=== PATIENT | male | born 1945 | race Two or more races ===

== ENCOUNTER 2016-02-25 08:54 | Inpatient (IN) | payer MEDICARE ==
[~2016-02-25] VITALS: Ht 170.2 cm; Wt 90.2 kg
[2016-02-25 09:38] LABS: Basophils # (auto) 0 uL; Basophils % (auto) 0.9 % (0.0-2.0); DEFINITIVE VIEW TRANSMISSION; Eosinophils # (auto) 0 uL; Eosinophils % (auto) 0.8 % (0.0-7.0); Hematocrit 40.1 % (41.0-53.0); Hemoglobin 12.9 g/dL (13.5-17.5); Lymphocytes # (auto) 0.7 uL; Lymphocytes % (auto) 14.3 % (10.0-50.0); Mean Corpuscular Hemoglobin 33.1 pg (28.0-32.0); Mean Corpuscular Hgb Conc. 32.3 g/dL (32.0-36.0); Mean Corpuscular Volume 102.5 fL (80.0-100.0); Mean Platelet Volume 8.6 fL (7.4-10.4); Monocytes # (auto) 0.4 uL; Monocytes % (auto) 7.5 % (0.0-12.0); Neutrophils # (auto) 3.6 uL; Neutrophils % (auto) 76.5 % (37.0-80.0); Platelet Count (auto) 134 10^3/uL (140-450); Red Cell Distribution Width 18.1 % (11.6-16.0); White Blood Cell 4.8 10^3/uL (4.4-10.8)
[2016-02-25 10:06] LABS: Albumin 3.2 g/dL (3.4-5.0); Bilirubin, Total 1.5 mg/dL (0.2-1.0); Potassium 3.9 mmol/L (3.5-5.1); Total Protein 7.5 g/dL (6.4-8.2)
[2016-02-25] MEDS ORDERED: ASPirin 81 mg TAB PO ONE (10:30)
[2016-02-25] MEDS ORDERED: AMIODARONE HCL 900 MG in DEXTROSE 500 ML IV SCH (11:27)
[2016-02-25] MEDS ORDERED: AMIODARONE HCL 150 MG in D5W 5% 100 ML IV ONE (11:45)
[2016-02-25] MEDS ORDERED: LIDOCAINE HCL 100 MG/5ML (2%) SYRG INJ IV ONE ×2 (12:28→12:30)
[2016-02-25] MEDS ORDERED: LIDOCAINE 4MG/ML IV SOLN 500 ML IV ONE (12:28)
[2016-02-25] MEDS ORDERED: LIDOCAINE 4MG/ML IV SOLN 500 ML IV SCH (12:30)
[2016-02-25] MEDS ORDERED: MORPHINE SULF INJ 2 MG/ML SYRINGE 1ML IV PRN ×2 (13:30)
[2016-02-25] MEDS ORDERED: DEXTROSE (50%) 50ML SYRG IV PRN (13:30)
[2016-02-25] MEDS ORDERED: DOCUSATE SOD 100 MG CAP PO PRN (13:30)
[2016-02-25] MEDS ORDERED: NITROGLYCERIN 0.4 MG SL TAB SL PRN (13:30)
[2016-02-25] MEDS ORDERED: ACETAMINOPHEN 325 MG TAB PO PRN (13:30)
[2016-02-25] MEDS ORDERED: TEMAZEPAM 15 MG CAP PO PRN (13:30)
[2016-02-25] MEDS: LIDOCAINE 4MG/ML IV SOLN 500 ML IV SCH (13:45)
[2016-02-25] MEDS: SODIUM CHLOR 0.9% PF (SALINE LOCK) 10ML VIAL IV SCH ×2 (14:39→22:00)
[2016-02-25] MEDS ORDERED: CLOPIDOGREL BISULFATE 75 MG TAB PO ONE (15:00)
[2016-02-25] MEDS ORDERED: MULTIPLE VITAMIN TAB PO ONE (15:00)
[2016-02-25] MEDS ORDERED: B-COMPLEX W/ C & FOLIC ACID(NEPHROVITE TAB) PO ONE (15:00)
[2016-02-25] MEDS: ACCU-CHEK COMFORT CURVE STRIP VI SCH ×2 (16:52→22:00)
[2016-02-25] MEDS: InsuLIN REG 1unit/0.01ml Soln (100units/ml) SC SCH ×2 (16:52→22:00)
[2016-02-25] MEDS: HYDROcodone-ACET 5/325MG TAB PO PRN (17:21)
[2016-02-25] MEDS: Boost Glucose Control 8 Ounces PO SCH (18:55)
[2016-02-25] MEDS: LOSARTAN POTASSIUM 25 MG TAB PO SCH (19:00)
[2016-02-25] MEDS: CALCIUM ACETATE 667 MG CAP PO SCH (19:01)
[2016-02-25] MEDS ORDERED: HYDROmorphone HCL 2 MG/ML VL IV PRN (19:30)
[2016-02-25] MEDS ORDERED: ONDANSETRON HCL 4 MG/2 ML VIAL ONE (21:28)
[2016-02-25] MEDS: CARVEDILOL 3.125 MG TAB PO SCH (21:43)
[2016-02-25] MEDS: AMIODARONE HCL 200 MG TAB PO SCH (21:43)
[2016-02-25] MEDS: FAMOTIDINE 20 MG TAB PO SCH (21:47)
[2016-02-25] MEDS: ATORVASTATIN 20 MG TAB PO SCH (21:47)
[2016-02-25] MEDS ORDERED: NOREPINEPHRINE BITARTRATE 250 ML IV ONE (21:49)
[2016-02-25] MEDS: FISH OIL 1000MG PO SCH (22:00)
[2016-02-25] MEDS: NOREPINEPHRINE BITARTRATE 250 ML IV SCH (22:00)
[2016-02-25] MEDS: HYDROmorphone HCL 2 MG/ML VL IV PRN (22:20)
[2016-02-26] MEDS: HYDROmorphone HCL 2 MG/ML VL IV PRN ×2 (02:47→05:56)
[2016-02-26 04:17] LABS: Basophils # (auto) 0 uL; DEFINITIVE VIEW TRANSMISSION; Eosinophils # (auto) 0 uL; Hematocrit 39.1 % (41.0-53.0); Hemoglobin 12.2 g/dL (13.5-17.5); Lymphocytes # (auto) 0.6 uL; Lymphocytes % (auto) 7.4 % (10.0-50.0); Mean Corpuscular Hemoglobin 32.9 pg (28.0-32.0); Mean Corpuscular Hgb Conc. 31.3 g/dL (32.0-36.0); Mean Corpuscular Volume 104.9 fL (80.0-100.0); Mean Platelet Volume 9.5 fL (7.4-10.4); Monocytes # (auto) 0.9 uL; Neutrophils # (auto) 6.3 uL; Neutrophils % (auto) 81.6 % (37.0-80.0); Platelet Count (auto) 115 10^3/uL (140-450); Red Cell Distribution Width 18.6 % (11.6-16.0); White Blood Cell 7.8 10^3/uL (4.4-10.8)
[2016-02-26] MEDS: ACCU-CHEK COMFORT CURVE STRIP VI SCH ×4 (06:20→22:24)
[2016-02-26] MEDS: SODIUM CHLOR 0.9% PF (SALINE LOCK) 10ML VIAL IV SCH ×3 (06:20→22:24)
[2016-02-26] MEDS: InsuLIN REG 1unit/0.01ml Soln (100units/ml) SC SCH ×3 (06:21→22:00)
[2016-02-26] MEDS: CALCIUM ACETATE 667 MG CAP PO SCH ×3 (08:00→18:00)
[2016-02-26] MEDS: Boost Glucose Control 8 Ounces PO SCH ×3 (08:00→18:00)
[2016-02-26] MEDS: LOSARTAN POTASSIUM 25 MG TAB PO SCH ×3 (08:00→18:00)
[2016-02-26] MEDS ORDERED: NOREPINEPHRINE BITARTRATE 250 ML IV ONE (08:17)
[2016-02-26 08:22] LABS: INR 1.34 (0.9-1.15); Prothrombin Time 13.8 sec (9.37-12.3)
[2016-02-26] MEDS: FISH OIL 1000MG PO SCH ×2 (09:34→22:00)
[2016-02-26] MEDS: ASPirin-EC 81 mg tab PO SCH (09:34)
[2016-02-26] MEDS: AMIODARONE HCL 200 MG TAB PO SCH ×2 (09:34→22:43)
[2016-02-26] MEDS: MULTIPLE VITAMIN TAB PO SCH (09:34)
[2016-02-26] MEDS: CARVEDILOL 3.125 MG TAB PO SCH ×2 (09:34→22:44)
[2016-02-26] MEDS: B-COMPLEX W/ C & FOLIC ACID(NEPHROVITE TAB) PO SCH (09:35)
[2016-02-26] MEDS: ONDANSETRON HCL 4 MG/2 ML VIAL IV PRN ×3 (09:40→20:30)
[2016-02-26 09:48] LABS: Albumin 3.1 g/dL (3.4-5.0); BUN/Creatinine Ratio 5.8; Bilirubin, Total 1.3 mg/dL (0.2-1.0); Potassium 4.9 mmol/L (3.5-5.1); Total Protein 7.1 g/dL (6.4-8.2)
[2016-02-26] MEDS ORDERED: SODIUM CHLORIDE 0.9% 500 ML IV ONE (11:45)
[2016-02-26] MEDS: CLOPIDOGREL BISULFATE 75 MG TAB PO SCH (11:47)
[2016-02-26] MEDS: FAMOTIDINE 20 MG TAB PO SCH ×2 (11:47→22:45)
[2016-02-26] MEDS ORDERED: POTASSIUM CHL 20 Meq TABLET PO ONE (13:30)
[2016-02-26] MEDS: LIDOCAINE 4MG/ML IV SOLN 500 ML IV SCH (14:10)
[2016-02-26] MEDS ORDERED: SODIUM CHL 0.9% 1000 ML BAG XX ONE (14:45)
[2016-02-26] MEDS: NOREPINEPHRINE BITARTRATE 250 ML IV SCH (22:00)
[2016-02-26] MEDS: ATORVASTATIN 20 MG TAB PO SCH (22:45)
[2016-02-26] MEDS: MEXILETINE HYDROCHLORIDE 150 MG CAP PO SCH (22:45)
[2016-02-27] VITALS (79 sets, daily range): BP systolic 76–152; BP diastolic 49–94
[2016-02-27] MEDS: SODIUM CHLOR 0.9% PF (SALINE LOCK) 10ML VIAL IV SCH ×3 (05:54→21:03)
[2016-02-27] MEDS: ACCU-CHEK COMFORT CURVE STRIP VI SCH ×4 (05:55→21:31)
[2016-02-27] MEDS: InsuLIN REG 1unit/0.01ml Soln (100units/ml) SC SCH ×4 (06:00→21:41)
[2016-02-27] MEDS: ONDANSETRON HCL 4 MG/2 ML VIAL IV PRN ×3 (06:08→17:44)
[2016-02-27] MEDS ORDERED: LORazepam 2MG/ML-1ML VIAL IM ONE (06:45)
[2016-02-27] MEDS: Boost Glucose Control 8 Ounces PO SCH ×3 (08:00→17:48)
[2016-02-27] MEDS: LOSARTAN POTASSIUM 25 MG TAB PO SCH ×3 (08:00→17:48)
[2016-02-27] MEDS: CALCIUM ACETATE 667 MG CAP PO SCH ×3 (08:00→17:37)
[2016-02-27] MEDS ORDERED: ALBUMIN 25% 100 ML IV ONE (08:00)
[2016-02-27] MEDS: FISH OIL 1000MG PO SCH ×2 (10:00→20:09)
[2016-02-27] MEDS: CARVEDILOL 3.125 MG TAB PO SCH ×3 (10:00→21:09)
[2016-02-27] MEDS: B-COMPLEX W/ C & FOLIC ACID(NEPHROVITE TAB) PO SCH (12:30)
[2016-02-27] MEDS: MULTIPLE VITAMIN TAB PO SCH (12:30)
[2016-02-27] MEDS: ASPirin-EC 81 mg tab PO SCH (12:31)
[2016-02-27] MEDS: AMIODARONE HCL 200 MG TAB PO SCH ×2 (12:31→21:01)
[2016-02-27] MEDS: FAMOTIDINE 20 MG TAB PO SCH ×2 (12:32→21:01)
[2016-02-27] MEDS: CLOPIDOGREL BISULFATE 75 MG TAB PO SCH (12:32)
[2016-02-27 15:30] LABS: BUN/Creatinine Ratio 5.3; Calcium 8.4 mg/dL (8.5-10.1); Magnesium 2.5 mg/dL (1.6-2.6); Potassium 4.7 mmol/L (3.5-5.1)
[2016-02-27] MEDS: MEXILETINE HYDROCHLORIDE 150 MG CAP PO SCH ×2 (17:38→21:31)
[2016-02-27] MEDS: ATORVASTATIN 20 MG TAB PO SCH (21:01)
[2016-02-27 23:21] LABS: Magnesium 2.4 mg/dL (1.6-2.6)
[2016-02-28] VITALS (95 sets, daily range): BP systolic 72–125; BP diastolic 37–90
[2016-02-28 04:04] LABS: BUN/Creatinine Ratio 6.1; Calcium 8.6 mg/dL (8.5-10.1); Magnesium 2.6 mg/dL (1.6-2.6)
[2016-02-28] MEDS: SODIUM CHLOR 0.9% PF (SALINE LOCK) 10ML VIAL IV SCH ×3 (05:05→21:21)
[2016-02-28] MEDS: InsuLIN REG 1unit/0.01ml Soln (100units/ml) SC SCH ×4 (06:08→21:44)
[2016-02-28] MEDS: ACCU-CHEK COMFORT CURVE STRIP VI SCH ×4 (06:35→21:23)
[2016-02-28] MEDS: LOSARTAN POTASSIUM 25 MG TAB PO SCH (08:00)
[2016-02-28] MEDS: Boost Glucose Control 8 Ounces PO SCH ×3 (08:00→16:43)
[2016-02-28] MEDS: CALCIUM ACETATE 667 MG CAP PO SCH ×3 (08:00→16:42)
[2016-02-28] MEDS: ONDANSETRON HCL 4 MG/2 ML VIAL IV PRN ×3 (08:16→23:29)
[2016-02-28] MEDS ORDERED: SODIUM CHLORIDE 0.9% 150 ML IV ONE (08:30)
[2016-02-28] MEDS: FISH OIL 1000MG PO SCH ×2 (10:00→21:22)
[2016-02-28] MEDS: PANTOPRAZOLE 40 MG TAB PO SCH ×2 (10:37→10:39)
[2016-02-28] MEDS: FAMOTIDINE 20 MG TAB PO SCH ×2 (10:38→21:21)
[2016-02-28] MEDS: ASPirin-EC 81 mg tab PO SCH (10:38)
[2016-02-28] MEDS: LIDOCAINE 4MG/ML IV SOLN 500 ML IV SCH ×2 (10:38→13:45)
[2016-02-28] MEDS: CLOPIDOGREL BISULFATE 75 MG TAB PO SCH (10:38)
[2016-02-28] MEDS: AMIODARONE HCL 200 MG TAB PO SCH ×2 (10:39→21:22)
[2016-02-28] MEDS: MEXILETINE HYDROCHLORIDE 150 MG CAP PO SCH (10:40)
[2016-02-28] MEDS: MULTIPLE VITAMIN TAB PO SCH (10:48)
[2016-02-28] MEDS: B-COMPLEX W/ C & FOLIC ACID(NEPHROVITE TAB) PO SCH (10:48)
[2016-02-28] MEDS ORDERED: NOREPINEPHRINE BITARTRATE 250 ML IV ONE (11:18)
[2016-02-28] MEDS: ALBUMIN 25% 100 ML IV SCH ×2 (11:48→12:00)
[2016-02-28] MEDS: SODIUM CHLORIDE 0.9% 1,000 ML IV SCH (12:01)
[2016-02-28 12:40] LABS: Basophils # (auto) 0 uL; Basophils % (auto) 0.3 % (0.0-2.0); DEFINITIVE VIEW TRANSMISSION; Eosinophils # (auto) 0 uL; Eosinophils % (auto) 0.2 % (0.0-7.0); Hematocrit 39.5 % (41.0-53.0); Hemoglobin 12.8 g/dL (13.5-17.5); Lymphocytes # (auto) 0.9 uL; Lymphocytes % (auto) 11.3 % (10.0-50.0); Mean Corpuscular Hemoglobin 33.5 pg (28.0-32.0); Mean Corpuscular Hgb Conc. 32.4 g/dL (32.0-36.0); Mean Corpuscular Volume 103.4 fL (80.0-100.0); Monocytes # (auto) 0.7 uL; Monocytes % (auto) 9.3 % (0.0-12.0); Neutrophils % (auto) 78.9 % (37.0-80.0); Platelet Count (auto) 88 10^3/uL (140-450); White Blood Cell 7.6 10^3/uL (4.4-10.8)
[2016-02-28] MEDS ORDERED: OMEGCAP2 OR (15:26)
[2016-02-28] MEDS ORDERED: FOLI800T14 PO (15:26)
[2016-02-28] MEDS ORDERED: ATOR40TA52 PO (15:26)
[2016-02-28] MEDS ORDERED: B COCAP3 OR (15:26)
[2016-02-28] MEDS ORDERED: MIDO5TAB16 PO (15:26)
[2016-02-28] MEDS ORDERED: ERGO1CAP23 PO (15:26)
[2016-02-28] MEDS ORDERED: GLIP-115 PO (15:26)
[2016-02-28] MEDS ORDERED: ASPI-231 PO (15:26)
[2016-02-28] MEDS ORDERED: CLOP75TA41 PO (15:26)
[2016-02-28] MEDS ORDERED: CAL667C PO (15:26)
[2016-02-28] MEDS ORDERED: CARV3.1240 PO (15:26)
[2016-02-28] MEDS ORDERED: NITR0.4S29 SL (15:26)
[2016-02-28] MEDS: NOREPINEPHRINE BITARTRATE 250 ML IV SCH (20:30)
[2016-02-28] MEDS: ATORVASTATIN 20 MG TAB PO SCH (21:21)
[2016-02-28] MEDS ORDERED: MEXILETINE HYDROCHLORIDE 150 MG CAP PO SCH (22:00)
[2016-02-29] VITALS (92 sets, daily range): BP systolic 87–138; BP diastolic 36–87
[2016-02-29] MEDS: SODIUM CHLORIDE 0.9% 1,000 ML IV SCH ×2 (03:55→22:29)
[2016-02-29] MEDS: ONDANSETRON HCL 4 MG/2 ML VIAL IV PRN ×2 (04:59→08:19)
[2016-02-29] MEDS: SODIUM CHLOR 0.9% PF (SALINE LOCK) 10ML VIAL IV SCH ×3 (05:23→22:27)
[2016-02-29] MEDS: InsuLIN REG 1unit/0.01ml Soln (100units/ml) SC SCH ×4 (06:03→22:00)
[2016-02-29] MEDS: ACCU-CHEK COMFORT CURVE STRIP VI SCH ×4 (06:06→22:28)
[2016-02-29] MEDS: Boost Glucose Control 8 Ounces PO SCH ×3 (08:00→18:00)
[2016-02-29] MEDS: CALCIUM ACETATE 667 MG CAP PO SCH ×3 (08:00→18:00)
[2016-02-29] MEDS ORDERED: PROMETHAZINE HCL 25 MG/ML 1ML IV PRN (08:15)
[2016-02-29] MEDS ORDERED: PROMETHAZINE HCL 25 MG/ML 1ML ONE (08:17)
[2016-02-29 09:13] LABS: Basophils # (auto) 0 uL; Basophils % (auto) 0.3 % (0.0-2.0); DEFINITIVE VIEW TRANSMISSION; Eosinophils # (auto) 0 uL; Eosinophils % (auto) 0.3 % (0.0-7.0); Hematocrit 43.3 % (41.0-53.0); Hemoglobin 13.9 g/dL (13.5-17.5); Lymphocytes # (auto) 0.9 uL; Lymphocytes % (auto) 10.2 % (10.0-50.0); Mean Corpuscular Hemoglobin 33.2 pg (28.0-32.0); Mean Corpuscular Hgb Conc. 32.1 g/dL (32.0-36.0); Mean Corpuscular Volume 103.5 fL (80.0-100.0); Monocytes # (auto) 0.9 uL; Monocytes % (auto) 10.2 % (0.0-12.0); Neutrophils # (auto) 7.2 uL; Nucleated Red Blood Cells % 2.7 %; Platelet Count (auto) 100 10^3/uL (140-450); Red Cell Distribution Width 18.4 % (11.6-16.0); SUSPECT VIEW TRANSMISSION; White Blood Cell 9.1 10^3/uL (4.4-10.8)
[2016-02-29] MEDS: AMIODARONE HCL 200 MG TAB PO SCH ×2 (10:00→22:27)
[2016-02-29] MEDS: MULTIPLE VITAMIN TAB PO SCH (10:00)
[2016-02-29] MEDS: PANTOPRAZOLE 40 MG TAB PO SCH (10:00)
[2016-02-29] MEDS: CLOPIDOGREL BISULFATE 75 MG TAB PO SCH (10:00)
[2016-02-29] MEDS: FISH OIL 1000MG PO SCH ×2 (10:00→22:00)
[2016-02-29] MEDS: FAMOTIDINE 20 MG TAB PO SCH ×2 (10:00→22:28)
[2016-02-29] MEDS: ASPirin-EC 81 mg tab PO SCH (10:00)
[2016-02-29] MEDS: B-COMPLEX W/ C & FOLIC ACID(NEPHROVITE TAB) PO SCH (10:00)
[2016-02-29 10:03] LABS: BUN/Creatinine Ratio 7.2; Calcium 8.6 mg/dL (8.5-10.1); Potassium 4.9 mmol/L (3.5-5.1)
[2016-02-29] MEDS: NOREPINEPHRINE BITARTRATE 250 ML IV SCH (13:14)
[2016-02-29] MEDS: LIDOCAINE 4MG/ML IV SOLN 500 ML IV SCH (13:45)
[2016-02-29] MEDS: ATORVASTATIN 20 MG TAB PO SCH (22:28)
[2016-03-01] VITALS (93 sets, daily range): BP systolic 78–152; BP diastolic 32–88
[2016-03-01] MEDS: HYDROcodone-ACET 5/325MG TAB PO PRN ×2 (02:39→19:51)
[2016-03-01 04:00] LABS: Albumin 3.4 g/dL (3.4-5.0); BUN/Creatinine Ratio 7.6; Calcium 8.5 mg/dL (8.5-10.1); Magnesium 2.7 mg/dL (1.6-2.6); Potassium 4.8 mmol/L (3.5-5.1)
[2016-03-01 04:02] LABS: Bilirubin, Total 1.3 mg/dL (0.2-1.0); Total Protein 6.4 g/dL (6.4-8.2)
[2016-03-01] MEDS: SODIUM CHLOR 0.9% PF (SALINE LOCK) 10ML VIAL IV SCH ×3 (06:21→22:10)
[2016-03-01] MEDS: InsuLIN REG 1unit/0.01ml Soln (100units/ml) SC SCH ×4 (06:21→22:00)
[2016-03-01] MEDS: ACCU-CHEK COMFORT CURVE STRIP VI SCH ×4 (06:21→22:10)
[2016-03-01] MEDS ORDERED: LIDOCAINE 4MG/ML IV SOLN 500 ML IV SCH ×2 (06:45→07:00)
[2016-03-01] MEDS: CALCIUM ACETATE 667 MG CAP PO SCH ×3 (08:34→17:54)
[2016-03-01] MEDS: Boost Glucose Control 8 Ounces PO SCH ×3 (08:34→18:00)
[2016-03-01] MEDS ORDERED: SODIUM CHL 0.9% 1000 ML BAG XX ONE (09:30)
[2016-03-01] MEDS: AMIODARONE HCL 200 MG TAB PO SCH ×2 (10:53→22:08)
[2016-03-01] MEDS: NOREPINEPHRINE BITARTRATE 250 ML IV SCH (13:14)
[2016-03-01] MEDS: FISH OIL 1000MG PO SCH ×2 (14:53→22:00)
[2016-03-01] MEDS: CLOPIDOGREL BISULFATE 75 MG TAB PO SCH (15:13)
[2016-03-01] MEDS: ASPirin-EC 81 mg tab PO SCH (15:13)
[2016-03-01] MEDS: B-COMPLEX W/ C & FOLIC ACID(NEPHROVITE TAB) PO SCH (15:13)
[2016-03-01] MEDS: FAMOTIDINE 20 MG TAB PO SCH ×2 (15:13→22:09)
[2016-03-01] MEDS: PANTOPRAZOLE 40 MG TAB PO SCH (15:14)
[2016-03-01] MEDS: MULTIPLE VITAMIN TAB PO SCH (15:14)
[2016-03-01 20:05] LABS: Vitamin B12 1577 pg/mL (211-911)
[2016-03-01 20:37] LABS: Temperature: 22.5 C (20.0-25.0)
[2016-03-01] MEDS: ATORVASTATIN 20 MG TAB PO SCH (22:09)
[2016-03-02] VITALS (53 sets, daily range): BP systolic 71–136; BP diastolic 31–79
[2016-03-02 04:05] LABS: Basophils # (auto) 0 uL; Basophils % (auto) 0.5 % (0.0-2.0); DEFINITIVE VIEW TRANSMISSION; Eosinophils # (auto) 0.1 uL; Eosinophils % (auto) 1.8 % (0.0-7.0); Hemoglobin 13.3 g/dL (13.5-17.5); Lymphocytes # (auto) 0.9 uL; Lymphocytes % (auto) 11.2 % (10.0-50.0); Mean Corpuscular Hemoglobin 32.9 pg (28.0-32.0); Mean Corpuscular Hgb Conc. 31.8 g/dL (32.0-36.0); Mean Corpuscular Volume 103.6 fL (80.0-100.0); Mean Platelet Volume 9.4 fL (7.4-10.4); Monocytes # (auto) 0.8 uL; Monocytes % (auto) 10.6 % (0.0-12.0); Neutrophils % (auto) 75.9 % (37.0-80.0); Platelet Count (auto) 121 10^3/uL (140-450); Red Cell Distribution Width 18.3 % (11.6-16.0); White Blood Cell 7.9 10^3/uL (4.4-10.8)
[2016-03-02 04:20] LABS: Albumin 3.3 g/dL (3.4-5.0); BUN/Creatinine Ratio 6.4; Bilirubin, Total 1.2 mg/dL (0.2-1.0); Calcium 8.7 mg/dL (8.5-10.1); Magnesium 2.7 mg/dL (1.6-2.6); Potassium 4.6 mmol/L (3.5-5.1); Total Protein 6.5 g/dL (6.4-8.2)
[2016-03-02] MEDS: ACCU-CHEK COMFORT CURVE STRIP VI SCH ×4 (06:44→22:00)
[2016-03-02] MEDS: InsuLIN REG 1unit/0.01ml Soln (100units/ml) SC SCH ×4 (06:44→22:00)
[2016-03-02] MEDS: SODIUM CHLOR 0.9% PF (SALINE LOCK) 10ML VIAL IV SCH ×3 (06:45→22:00)
[2016-03-02] MEDS: CALCIUM ACETATE 667 MG CAP PO SCH ×3 (09:12→18:00)
[2016-03-02] MEDS: Boost Glucose Control 8 Ounces PO SCH ×3 (10:09→18:00)
[2016-03-02] MEDS: B-COMPLEX W/ C & FOLIC ACID(NEPHROVITE TAB) PO SCH (10:11)
[2016-03-02] MEDS: FAMOTIDINE 20 MG TAB PO SCH ×2 (10:12→22:00)
[2016-03-02] MEDS: CLOPIDOGREL BISULFATE 75 MG TAB PO SCH (10:12)
[2016-03-02] MEDS: MULTIPLE VITAMIN TAB PO SCH (10:12)
[2016-03-02] MEDS: ASPirin-EC 81 mg tab PO SCH (10:12)
[2016-03-02] MEDS: AMIODARONE HCL 200 MG TAB PO SCH ×2 (10:12→22:00)
[2016-03-02] MEDS: FISH OIL 1000MG PO SCH ×2 (10:31→22:00)
[2016-03-02] MEDS: PANTOPRAZOLE 40 MG TAB PO SCH (10:32)
[2016-03-02] MEDS ORDERED: guaiFENesin-COD 10 ML UD PO PRN (13:45)
[2016-03-02] MEDS: guaiFENesin 200 MG/10 ML UD PO PRN (14:48)
[2016-03-02] MEDS ORDERED: SODIUM CHL 0.9% 1000 ML BAG XX ONE (16:15)
[2016-03-02] MEDS: HYDROmorphone HCL 2 MG/ML VL IV PRN ×2 (19:45→23:48)
[2016-03-02] MEDS: ATORVASTATIN 20 MG TAB PO SCH (22:00)
[2016-03-03 04:07] VITALS: BP 103/57
[2016-03-03] MEDS: guaiFENesin 200 MG/10 ML UD PO PRN ×2 (04:15→14:40)
[2016-03-03] MEDS: HYDROmorphone HCL 2 MG/ML VL IV PRN ×2 (04:46→06:40)
[2016-03-03] MEDS: SODIUM CHLOR 0.9% PF (SALINE LOCK) 10ML VIAL IV SCH ×3 (06:14→20:44)
[2016-03-03] MEDS: InsuLIN REG 1unit/0.01ml Soln (100units/ml) SC SCH ×4 (06:15→21:51)
[2016-03-03] MEDS: ACCU-CHEK COMFORT CURVE STRIP VI SCH ×4 (06:18→21:03)
[2016-03-03 08:00] VITALS: BP 91/61
[2016-03-03] MEDS: CALCIUM ACETATE 667 MG CAP PO SCH ×3 (08:00→17:45)
[2016-03-03] MEDS: FISH OIL 1000MG PO SCH ×2 (10:00→20:44)
[2016-03-03 10:54] VITALS: BP 106/58
[2016-03-03] MEDS: Boost Glucose Control 8 Ounces PO SCH ×3 (11:24→17:47)
[2016-03-03] MEDS: MULTIPLE VITAMIN TAB PO SCH (11:31)
[2016-03-03] MEDS: ASPirin-EC 81 mg tab PO SCH (11:31)
[2016-03-03] MEDS: B-COMPLEX W/ C & FOLIC ACID(NEPHROVITE TAB) PO SCH (11:32)
[2016-03-03] MEDS: CLOPIDOGREL BISULFATE 75 MG TAB PO SCH (11:32)
[2016-03-03] MEDS: FAMOTIDINE 20 MG TAB PO SCH ×2 (11:32→21:03)
[2016-03-03] MEDS: PANTOPRAZOLE 40 MG TAB PO SCH (11:33)
[2016-03-03 12:01] VITALS: BP 106/60
[2016-03-03] MEDS: AMIODARONE HCL 200 MG TAB PO SCH ×2 (13:38→21:04)
[2016-03-03 16:00] VITALS: BP 109/53
[2016-03-03 19:56] VITALS: BP 105/65
[2016-03-03] MEDS: ATORVASTATIN 20 MG TAB PO SCH (21:03)
[2016-03-04 00:04] VITALS: BP 101/58
[2016-03-04] MEDS: guaiFENesin 200 MG/10 ML UD PO PRN ×3 (03:52→21:38)
[2016-03-04 03:59] VITALS: BP 96/60
[2016-03-04] MEDS: InsuLIN REG 1unit/0.01ml Soln (100units/ml) SC SCH ×3 (06:00→17:00)
[2016-03-04] MEDS: SODIUM CHLOR 0.9% PF (SALINE LOCK) 10ML VIAL IV SCH ×3 (06:00→21:39)
[2016-03-04] MEDS: ACCU-CHEK COMFORT CURVE STRIP VI SCH ×4 (06:03→21:44)
[2016-03-04 08:00] VITALS: BP 79/45
[2016-03-04] MEDS: Boost Glucose Control 8 Ounces PO SCH ×3 (08:03→17:44)
[2016-03-04] MEDS: CALCIUM ACETATE 667 MG CAP PO SCH ×3 (08:03→17:46)
[2016-03-04] MEDS: CLOPIDOGREL BISULFATE 75 MG TAB PO SCH (09:55)
[2016-03-04] MEDS: MULTIPLE VITAMIN TAB PO SCH (09:55)
[2016-03-04] MEDS: FAMOTIDINE 20 MG TAB PO SCH ×2 (09:55→21:38)
[2016-03-04] MEDS: PANTOPRAZOLE 40 MG TAB PO SCH (09:55)
[2016-03-04] MEDS: ASPirin-EC 81 mg tab PO SCH (09:55)
[2016-03-04] MEDS: B-COMPLEX W/ C & FOLIC ACID(NEPHROVITE TAB) PO SCH (09:55)
[2016-03-04] MEDS: AMIODARONE HCL 200 MG TAB PO SCH ×2 (09:56→21:45)
[2016-03-04] MEDS: FISH OIL 1000MG PO SCH ×2 (10:06→22:00)
[2016-03-04 12:00] VITALS: BP 97/63
[2016-03-04 16:00] VITALS: BP 104/59
[2016-03-04] MEDS: ATORVASTATIN 20 MG TAB PO SCH (21:38)
[2016-03-04 22:00] VITALS: BP 107/59
[2016-03-05] MEDS: InsuLIN REG 1unit/0.01ml Soln (100units/ml) SC SCH ×5 (00:12→21:48)
[2016-03-05] MEDS: guaiFENesin 200 MG/10 ML UD PO PRN ×3 (03:33→19:25)
[2016-03-05 05:00] VITALS: BP 98/61
[2016-03-05] MEDS: SODIUM CHLOR 0.9% PF (SALINE LOCK) 10ML VIAL IV SCH ×3 (05:55→21:47)
[2016-03-05] MEDS: ACCU-CHEK COMFORT CURVE STRIP VI SCH ×4 (06:47→21:48)
[2016-03-05] MEDS: CALCIUM ACETATE 667 MG CAP PO SCH ×3 (07:58→17:34)
[2016-03-05] MEDS: Boost Glucose Control 8 Ounces PO SCH ×3 (07:59→18:00)
[2016-03-05 08:15] VITALS: BP 103/56
[2016-03-05] MEDS: CLOPIDOGREL BISULFATE 75 MG TAB PO SCH (09:56)
[2016-03-05] MEDS: PANTOPRAZOLE 40 MG TAB PO SCH (09:56)
[2016-03-05] MEDS: B-COMPLEX W/ C & FOLIC ACID(NEPHROVITE TAB) PO SCH (09:56)
[2016-03-05] MEDS: FAMOTIDINE 20 MG TAB PO SCH ×2 (09:56→21:48)
[2016-03-05] MEDS: AMIODARONE HCL 200 MG TAB PO SCH ×2 (09:56→21:47)
[2016-03-05] MEDS: MULTIPLE VITAMIN TAB PO SCH (09:56)
[2016-03-05] MEDS: FISH OIL 1000MG PO SCH ×2 (10:00→21:47)
[2016-03-05] MEDS: ASPirin-EC 81 mg tab PO SCH (12:11)
[2016-03-05 13:12] VITALS: BP 106/76
[2016-03-05] MEDS ORDERED: ALBUMIN 25% 100 ML IV ONE ×2 (15:30)
[2016-03-05 16:25] VITALS: BP 102/62
[2016-03-05] MEDS: ATORVASTATIN 20 MG TAB PO SCH (21:48)
[2016-03-05 22:00] VITALS: BP 107/61
[2016-03-06] MEDS: guaiFENesin 200 MG/10 ML UD PO PRN (02:12)
[2016-03-06 05:52] VITALS: BP 99/62
[2016-03-06] MEDS: ACCU-CHEK COMFORT CURVE STRIP VI SCH (06:14)
[2016-03-06] MEDS: InsuLIN REG 1unit/0.01ml Soln (100units/ml) SC SCH (06:14)
[2016-03-06] MEDS: SODIUM CHLOR 0.9% PF (SALINE LOCK) 10ML VIAL IV SCH (06:14)
== END 2016-03-06 09:00 | disposition short-term general hospital (02) | DRG 314 ==
LOC: EDBD 08:54 → ER 09:04 → TELE 09:05 → ICU WEST 02-26 23:35 → DOU IN ICU 03-02 16:35 → TELE-WESTW 03-04 20:59
PROVIDERS: ADMIT Internal Medicine; ATTEND Internal Medicine Pulmonary Disease
PROC: 5A1D60Z (ICD-10-PCS; principal; 2016-02-27)
DX: I95.9 Hypotension, unspecified (principal); G93.41 Metabolic encephalopathy; N18.6 End stage renal disease; I49.01 Ventricular fibrillation; I47.2 Ventricular tachycardia; E44.0 Moderate protein-calorie malnutrition; D68.69 Other thrombophilia; I48.92 Unspecified atrial flutter; E11.65 Type 2 diabetes mellitus with hyperglycemia; I48.91 Unspecified atrial fibrillation; I25.10 Atherosclerotic heart disease of native coronary artery without angina pectoris; E11.22 Type 2 diabetes mellitus with diabetic chronic kidney disease; E11.21 Type 2 diabetes mellitus with diabetic nephropathy; D69.6 Thrombocytopenia, unspecified; D63.8 Anemia in other chronic diseases classified elsewhere; G43.909 Migraine, unspecified, not intractable, without status migrainosus; I07.1 Rheumatic tricuspid insufficiency; I25.5 Ischemic cardiomyopathy; I34.0 Nonrheumatic mitral (valve) insufficiency; I44.0 Atrioventricular block, first degree; I50.9 Heart failure, unspecified; I67.2 Cerebral atherosclerosis; I49.9 Cardiac arrhythmia, unspecified; Z83.3 Family history of diabetes mellitus; Z99.2 Dependence on renal dialysis; Z95.5 Presence of coronary angioplasty implant and graft; Z95.0 Presence of cardiac pacemaker; R55 Syncope and collapse
CPT/HCPCS: 36415; 70450; 71010; 80048; 80053; 82533; 82607; 82746; 82784; 82962; 83036; 83735; 84132; 84439; 84443; 84484; 85025; 85610; 85730; 86334; 87081; 90935; 93005; 93306; 96374; 96375; 96376; J1642; J1815; J2405; J3490; J7060